=== PATIENT | female | born 1955 | race Caucasian/White ===

== ENCOUNTER 2019-05-07 08:13 | Outpatient (CLI) | payer BC ==
--- NOTE | 2019-05-07 09:52 | MRI ---
MRI cervical spine noncontrast: DATE: 05/07/2019 HISTORY: 63-year-old female with cervical radiculopathy, left side COMPARISON: None FINDINGS: Cervical spinal cord is normal in size and signal. Alignment is normal. Vertebral body heights are ma intained. Normal cervical lordosis preserved. No high-grade bone marrow signal abnormality. 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 This is exacerbated by mild cervical spondylosis as described below. Facet DJD: Mild to moderate on right at C2-C3. Moderate at all levels on the left from C3-4 through C 7-T1. No high-grade disc space narrowing at any level. C1-2: No exacerbation of central stenosis. C2-3: No high-grade exacerbation of central stenosis or neural foraminal stenosis. C3-4: No high-grade exacerbation of central or right neural foraminal stenosis. Minimal left neural f oraminal stenosis. C4-5: No high-grade exacerbation of high-grade central stenosis or right neural foraminal stenosis. M oderate left neural foraminal stenosis. C5-6: Shallow, minimal broad-based disc-osteophytic bar complex exacerbates the developmentally small caliber spinal canal, causing moderate central spinal canal stenosis. No right neural foraminal stenosis. Moderate to severe left neural foraminal stenosis. C6-7: No high-grade exacerbation of central stenosis or right neural foraminal stenosis. Mild to mode rate left neural foraminal stenosis. C7-T1: No high-grade exacerbation of central stenosis. No high-grade right neural foraminal stenosis. Mild left neural foraminal stenosis. IMPRESSION: 1. Predominantly mild cervical spondylosis, consisting mainly of multilevel left-sided moderate facet osteoarthrosis. 2. Left neural foraminal stenosis at several levels.
--- NOTE | 2019-05-07 10:25 | MRI ---
MRI LUMBAR SPINE NONCONTRAST: DATE: 05/07/2019 HISTORY: 63-year-old female with lumbar radiculopathy and chronic low back pain. COMPARISON: none FINDINGS: Review of CT angiogram of the chest of 04/28/2014, and KUB of 10/07/2009 demonstrates 13 paired ribs. T he last rib-bearing vertebra, with hypoplastic/accessory bilateral ribs, will be designated as L1 rather than T12. Consequently, the last lumbar-type vertebra will be designated as L6. Vertebral body heights are maintained. No major bone marrow signal abnormality. Minimal/mild disc spa ce narrowing at L4-5. Mild disc space narrowing at L5-6. No significant disc space narrowing at L6-S1 or any other level superior to L4. Facet DJD is mild to moderate bilaterally at L4-5 with ligamentum flavum thickening, severe bilateral ly at L4-5, and mild to moderate at L5-S1 bilaterally. T12-L1:Imaged only on sagittal sequences. No central stenosis or high-grade neural foraminal stenosis . L1-2:Normal L2-3:Normal. Conus medullaris terminates at this level. L3-4:Essentially normal. L4-5:Minimal central stenosis. Mild diffuse disc bulge. Mild-moderate bilateral neural foraminal sten osis. L5-6:The bilateral high-grade facet DJD causes a grade 1 anterolisthesis of L5 on L6. Mild diffuse di sc bulge. Moderate right neural foraminal stenosis. A greater degree of moderate-severe left neural foraminal stenosis. Lateral recess stenosis bilaterally. Mild to moderate central spinal canal stenos is. L6-S1: No central stenosis. Mild disc bulge. Mild to moderate bilateral neural foraminal stenosis. IMPRESSION: 1) transitional vertebra: There are 13 rib bearing vertebrae. The level with bilateral accessory ribs is designated as L1, and the last lumbar-type vertebra is designated as L6. 2) high-grade bilateral facet osteoarthrosis causes grade 1 spondylolisthesis at L5-6, where there is bilateral moderate neural foraminal stenosis, left worse than right, and lateral recess stenosis bilaterally.
== END 2019-05-07 08:14 | disposition home or self-care (01) ==
LOC: BICMRI 08:13
PROVIDERS: ATTEND Specialist
DX: M47.26 Other spondylosis with radiculopathy, lumbar region (principal); M47.22 Other spondylosis with radiculopathy, cervical region; M48.061 Spinal stenosis, lumbar region without neurogenic claudication; M43.16 Spondylolisthesis, lumbar region; M48.02 Spinal stenosis, cervical region; M48.03 Spinal stenosis, cervicothoracic region
CPT/HCPCS: 72141; 72148

== ENCOUNTER 2019-06-19 22:18 | Emergency (ER) | payer BC ==
[2019-06-19 23:02] LABS: #Basophils 0.1 thou/uL (0.0-0.2); #Eosinphils 0.4 thou/uL (0.0-0.7); #Lymphocytes 2.5 thou/uL (1.20-3.40); #Neutrophils 8.9 thou/uL (1.40-6.50); %Eosinophils 2.9 % (0.0-10.0); %Lymphocytes 19.6 % (21.0-51.0); %Monocytes 7.9 % (0.0-10.0); %Neutrophils 68.8 % (42.0-75.0); Hemoglobin 14.5 g/dL (12.0-16.0); Mean Corpuscular HGB CONC 33.2 g/dL (32.0-36.0); Mean Corpuscular Hemoglobin 28.2 pg (27.0-31.0); Mean Corpuscular Volume 84.8 fL (78.0-98.0); Mean Platelet Volume 6.6 fL (7.4-10.4); Platelet Count 385 thou/uL (130-400); RBC Distribution Width 13.1 % (11.5-14.5); Red Blood Cell (RBC) Count 5.13 mill/uL (4.20-5.40); White Blood Cell (WBC) Count 12.9 thou/uL (4.8-10.8)
--- NOTE | 2019-06-19 23:12 | RAD ---
EXAM: CHEST ONE VIEW HISTORY: Weakness and diaphoresis. COMPARISON: 01/25/2011 FINDINGS: The cardiac silhouette and pulmonary vasculature is within normal limits. The lungs are clear. The os seous structures are intact. Chest is stable from prior exam. IMPRESSION: No acute cardiopulmonary process.
[2019-06-19 23:23] LABS: ALT (SGPT) 21 U/L (8-55); AST (SGOT) 24 U/L (5-34); Albumin 4.3 g/dL (3.4-4.8); Alkaline Phosphatase 103 U/L (40-110); Anion Gap 15 mmol/L (10-20); BUN (Urea Nitrogen) 16 mg/dL (9.8-20.1); Bilirubin, Total 0.3 mg/dL (0.2-1.2); Calc. Creatinine Clearance 0 mL/min (70-130); Carbon Dioxide 22 mmol/L (23-31); Chloride 109 mmol/L (98-107); Estimated GFR-MDRD 83; Globulin 2.9 g/dL (2.4-3.5); Glucose 96 mg/dL (80-115); Potassium 4.3 mmol/L (3.5-5.1); Protein, Total 7.2 g/dL (6.0-8.3); Sodium 142 mmol/L (136-145)
== END 2019-06-19 23:55 | disposition home or self-care (01) ==
LOC: ERS 22:18
DX: R53.1 Weakness (principal); I10 Essential (primary) hypertension; F41.9 Anxiety disorder, unspecified; Z79.899 Other long term (current) drug therapy; Z79.891 Long term (current) use of opiate analgesic
CPT/HCPCS: 36416; 71045; 80053; 84443; 84484; 85025; 93005; 96360

== ENCOUNTER 2022-01-02 10:37 | Outpatient (CLI) | payer MEDICARE, BC | END 2022-01-02 10:38 | disposition home or self-care (01) | LOC: BICMAMMO 10:37 | PROVIDERS: ATTEND Family Medicine | DX: Z12.31 Encounter for screening mammogram for malignant neoplasm of breast (principal); Z98.890 Other specified postprocedural states | CPT/HCPCS: 77063; 77067 ==

== ENCOUNTER 2023-03-07 08:54 | Outpatient (CLI) | payer MEDICARE, BC | END 2023-03-07 08:55 | disposition home or self-care (01) | LOC: BICMAMMO 08:54 | PROVIDERS: ATTEND Family Medicine | DX: Z12.31 Encounter for screening mammogram for malignant neoplasm of breast (principal); Z80.3 Family history of malignant neoplasm of breast; Z85.89 Personal history of malignant neoplasm of other organs and systems | CPT/HCPCS: 77063; 77067 ==

== ENCOUNTER 2023-11-25 11:52 | Outpatient (CLI) | payer MEDICARE, BC | END 2023-11-25 11:53 | disposition home or self-care (01) | LOC: SCSRAD 11:52 | PROVIDERS: ATTEND Family Medicine | DX: R10.9 Unspecified abdominal pain (principal) | CPT/HCPCS: 74018 ==

== ENCOUNTER 2024-03-19 08:09 | Outpatient (CLI) | payer MEDICARE, BC ==
[2024-03-19] MEDS ORDERED: Iopamidol 370 76% 100 ML VIAL ONE (11:26)
== END 2024-03-19 08:10 | disposition home or self-care (01) ==
LOC: CT 08:09
PROVIDERS: ATTEND Physician Assistant Medical
DX: R10.13 Epigastric pain (principal); K59.09 Other constipation; R14.0 Abdominal distension (gaseous)
CPT/HCPCS: 36415; 74177; 82565; Q9967